=== PATIENT | male | born 1990 | race Caucasian/White ===

== ENCOUNTER 2018-03-07 05:47 | Emergency (ER) | payer OTHER ==
[~2018-03-07] VITALS: Ht 177.8 cm; Wt 81.6 kg
[2018-03-07] MEDS ORDERED: HYDROCODONE/APAP 5MG-325MG TAB PO STA (06:21)
[2018-03-07] MEDS ORDERED: MORPHINE SULFATE 5 MG/ML VIAL IM ONE (06:30)
[2018-03-07] MEDS ORDERED: PENICILLIN G BENZATHINE LA 1.2 MU TBX IM STA (06:58)
[2018-03-07] MEDS ORDERED: TAMSULOSIN HCL 0.4 MG CAP PO SCH (07:00)
[2018-03-07 07:05] VITALS: BP 132/70
== END 2018-03-07 07:11 | disposition home or self-care (01) ==
LOC: FSED 05:47
DX: R10.32 Left lower quadrant pain (principal); R11.0 Nausea; N20.0 Calculus of kidney
CPT/HCPCS: 74176; 81003; 83518; 99284; J0561; J2270

== ENCOUNTER → 2022-06-27 | Day surgery (SDC) | payer BC, OTHER ==
[~2022-06-27] MED LIST: LIDOCAINE HCL 2% LOCAL INJ 5 ML SDV VIAL INJ ONE; POVIDONE IODINE 0.05% 0.05 % ML PO ONE; PROPOFOL IV EMULSION 10 MG/ML 20 ML VIAL ONE
[2022-06-27 15:35] VITALS: BP 144/96
== END | disposition home or self-care (01) ==
LOC: OR 12:18
PROVIDERS: ATTEND Internal Medicine Gastroenterology
DX: K52.9 Noninfective gastroenteritis and colitis, unspecified (principal); K62.89 Other specified diseases of anus and rectum; K64.8 Other hemorrhoids; K59.09 Other constipation; Z71.3 Dietary counseling and surveillance; F41.9 Anxiety disorder, unspecified; Z68.28 Body mass index [BMI] 28.0-28.9, adult
CPT/HCPCS: 36415; 45380; 83630; 83993; 87045; 87177; 87324; 87328; 87449; J2001; J2704